=== PATIENT | female | born 1955 | race Caucasian/White ===

== ENCOUNTER 2025-02-19 07:35 | Day surgery (SDC) | payer MEDICARE | END 2025-02-19 13:25 | disposition home or self-care (01) | LOC: DS 07:35 | PROC: 0JB80ZZ Excision of Abdomen Subcutaneous Tissue and Fascia, Open Approach (ICD-10-PCS; principal; 2025-02-19) | DX: D17.1 Benign lipomatous neoplasm of skin and subcutaneous tissue of trunk (principal); I10 Essential (primary) hypertension; E03.9 Hypothyroidism, unspecified; R73.03 Prediabetes; Z79.899 Other long term (current) drug therapy; Z88.0 Allergy status to penicillin; Z88.5 Allergy status to narcotic agent ==

== ENCOUNTER 2025-02-23 03:29 | Emergency (ER) | payer MEDICARE ==
[~2025-02-23] VITALS: Ht 162.6 cm; Wt 84.1 kg
[~2025-02-23 03:29] MED LIST: ARGININE PO; CEPHALEXIN500 MG PO; DIFLUCAN100 MG PO; HYDROCODON-ACE1 EA11 PO; IVERMECTIN3 MG PO; LISINOPRIL20 MG PO; NORVASC10 MG PO; VISBIOME 112.51 EACH PO
[2025-02-23] MEDS ORDERED: FLUCONAZOLE150 MG PO (05:27)
[2025-02-23 05:48] LABS: APPEARANCE, BODY FLUID BLOODY; SOURCE, BODY FLUID Seroma
[2025-02-23 06:32] VITALS: BP 143/86
[2025-02-23 09:35] LABS: WBC, BODY FLUID 7425
[2025-02-23 09:37] LABS: RBC, BODY FLUID 100000
[2025-02-23 09:38] LABS: MONONUCLEAR CELLS, BODY FLUID 3; PMNS, BODY FLUID 97
[2025-03-01] MEDS ORDERED: CEPHALEXIN500 MG PO (08:43)
== END 2025-02-23 06:33 | disposition home or self-care (01) ==
LOC: ED 03:29
PROVIDERS: Internal Medicine
DX: L76.34 Postprocedural seroma of skin and subcutaneous tissue following other procedure (principal); Z79.899 Other long term (current) drug therapy; Z88.0 Allergy status to penicillin; Z88.5 Allergy status to narcotic agent; Z88.1 Allergy status to other antibiotic agents
CPT/HCPCS: 10160; 76857; 87070; 87205; 89051; 99284-25

== ENCOUNTER 2025-04-11 16:04 | Emergency (ER) | payer MEDICARE ==
[~2025-04-11] VITALS: Ht 162.6 cm; Wt 82.2 kg
[~2025-04-11 16:04] MED LIST changes: +FLUCONAZOLE150 MG PO
[2025-04-11 18:05] VITALS: BP 133/88
== END 2025-04-11 18:05 | disposition home or self-care (01) ==
LOC: ED 16:04
DX: L76.34 Postprocedural seroma of skin and subcutaneous tissue following other procedure (principal); I10 Essential (primary) hypertension; Z79.899 Other long term (current) drug therapy; Z88.0 Allergy status to penicillin; Z88.1 Allergy status to other antibiotic agents; Z88.5 Allergy status to narcotic agent
CPT/HCPCS: 87070; 87075; 87186; 87205; 99283